=== PATIENT | female | born 2000 | race Caucasian/White ===

== ENCOUNTER 2020-10-23 21:45 | Inpatient (IN) ==
[2020-10-23 22:40] LABS: Appearance Urine Clear (Clear); Bacteria Urine Automated Negative (Negative); Bilirubin Urine Negative (Negative); Blood Urine Negative (Negative); Color Urine Yellow; Epithelial Cell Urine Auto >30 /lpf (0-5); Glucose Urine UA Negative (Negative); Ketones Urine Negative (Negative); Leukocyte Esterase Urine Negative (Negative); Nitrite Urine Negative (Negative); Protein Urine Trace (Negative); RBC Urine Automated 0-4 /hpf (0-4); Specific Gravity Urine 1.025 (1.000-1.030); Urobilinogen Urine Negative (Negative); pH Urine 6.5 (4.5-7.5)
[2020-10-23 22:55] LABS: Pregnancy Test, Urine Negative (Negative)
[2020-10-23 22:56] LABS: Basophils # (auto) 0.02 K/uL (0-0.2); Basophils % (auto) 0.2 %; Eosinophils # (auto) 0.12 K/uL (0-0.5); Eosinophils % (auto) 1.3 %; Hematocrit (blood only) 35.9 % (37-47); Hemoglobin 11.8 g/dL (12.0-16.0); Immature Granulocytes # (auto) 0.03 K/uL (0.00-0.02); Immature Granulocytes % (auto) 0.3 %; Lymphocytes # (auto) 2.59 K/uL (1.2-3.4); Mean Corpuscular Hemoglobin 30.3 pg (25-34); Mean Corpuscular Hgb Conc 32.9 g/dL (32-36); Mean Corpuscular Volume 92.1 fL (80-100); Mean Platelet Volume 9.7 fL (7.4-10.4); Monocytes # (auto) 0.75 K/uL (0.11-0.59); Monocytes % (auto) 8.4 %; Neutrophils # (auto) 5.42 K/uL (1.4-6.5); Neutrophils % (auto) 60.8 %; Platelet Count 209 K/uL (130-400); RDW Coefficient of Variation 12.4 % (11.5-14.5); RDW Standard Deviation 42.2 fL (36.4-46.3); White Blood Count 8.93 K/uL (4.8-10.8)
[2020-10-23 22:56] LABS: Amphetamines+Metham, Urine Neg (Neg); Barbiturates, Urine Neg (Neg); Benzodiazepine, Urine Neg (Neg); Cocaine, Urine Neg (Neg); MDMA (Ecstacy), Urine Neg (Neg); Methadone, Urine Neg (Neg); Opiate, Urine Neg (Neg); Phencyclidine, Urine Neg (Neg)
--- NOTE | 2020-10-23 23:02 | Emergency Department Note ---
Impression & Plan Depression with suicidal ideation ED Provider Note Name: JEFFREY CALZADA Age: 20 Sex: F Arrives Via: Walk-In Informant: Patient, Mother ED Provider: Danial Marcus MD Chief Complaint: Mental Health Evaluation Impression: Depression with Suicidal Ideation Medical Decision Makin yr old female with history depression and previous hospitalization several y ears ago arrives for evaluation of worsening suicidal ideation. Depressed with somewhat flat affect and admits suicidal ideation with plan to point where she was collecting medications the last few days to overdose on. No evidence of harm at this time and she is medically clear. She actively wishes to be admitted for psychiatric management. Voluntary admission to [address] [place] [address]. Triage/Nursing Notes reviewed by Me Differentials:Mood disorder, infection, hypoglycemia, electrolyte abnormalities, cardiac sources, intracerebral event, toxicologic, trauma, neuro logic, as well as other pathologies. Vital Signs: reviewed and remarkable for no significant abnormalities Labs:Reviewed and remarkable for no significant abnormalities Consults:[address] [place] [address] Accepts for admission Plan: Disposition:Hospitalization. Condition: Good History of Present Illness:20 yr old female arrives for evaluation of depression. Patient with worsening depression over the last few weeks. Admits increasing thoughts of killing self. She quit her job a few days ago and started planning to kill herself. She stopped her medications earlier this week and saved them in a bag to take all at once. She was about to take the medications this evening while intoxicated but decided to call her councillor first. Her Councillor advised she go to ED. She contacted her mother who brought her to ED for further evaluation. Patient denies attempt to harm self. No other recent attempts to harm self. She has history of cutting but has not done so in several months. She had several shots of Vodka earlier in the evening. Denies medical complaints other than periodic abdominal cramping after making herself vomit, no current abdominal pain. Nothing makes depression better, stress makes it worse. Previous hospitalizations at [facility] several years ago for depression. Has taken no medications today. Patient admits history of bulimia for which she is planning to check in to [facility] in several weeks for management. ROS: See above HPI for pertinent positives & negatives. A total of 10 systems reviewed and were otherwise negative. Past Medical History:Depression, bulimia Past Surgical History:Tonsils Family History:Mother - Hypothyroid Social History:Recently quit working at [employer], Occasional E ARLINE/Marijuana, No tobacco use, no other drug use Home Medications:Quit recently Allergies:NKDA Vitals:Blood Pressure: 116/71, Pulse 80, RR 20, T 36.7C, O2 98% on RA Physical Exam: GENERAL: Patient is sad appearing and in minimal distress. EYES: No scleral icterus, unremarkable pupils. ENT: Mucous membranes moist, no nasal congestion. NECK: No masses appreciated, nomeningismus, trachea is midline. RESPIRATORY: No dyspnea. Clear to auscultation and equal bilaterally. No wheeze, no rhonchi. CARDIOVASCULAR: Regular rate and rhythm.No murmurs, rubs, gallops appreciated. GASTROINTESTINAL: Abdomen soft, non-tender, no peritonitis.Bowel sounds positive.No masses appreciated. BACK: No midline tenderness, no CVA tenderness EXTREMITIES: Normal motion all extremities, no cyanosis, no edema. NEUROLOGIC: Alert and oriented, no acute motor or sensory deficits, no focal weakness, cranial nerves grossly intact. SKIN: No rash, no jaundice, no diaphoresis. old forearm scars from cutting. Writing on left hand. PSYCH: Depressed, flat, admits suicidal ideation with plan GCS: 15 ED Course: Times/Reassessments: Stable and agreeable to hospitalization Danial Marcus MD Past Med/Surg History Social History Smoking Status: Never smoker Preferred Language: Y[place] Beliefs That Will Affect Care: None Feels Safe at Home: Yes Assistive Devices: Contacts and Glasses Allergies Allergies Allergy/AdvReac Type Severity Reaction Status Date / Time No Known Allergies Allergy Unverified 10/24/20 02:36 Home Meds Home Medications Medication Instructions Recorded Confirmed bupropion HCl 300 mg PO DAILY 10/24/20 10/24/20 dexmethylphenidate 20 mg PO DAILY 10/24/20 10/24/20 doxycycline hyclate 100 mg PO DAILY 10/24/20 10/24/20 prazosin 2 mg PO HS 10/24/20 10/24/20 prochlorperazine maleate 5 mg PO DAILY 10/24/20 10/24/20 sucralfate 10 ml PO USEASDIRECTD 10/24/20 10/24/20 vortioxetine [Trintellix] 20 mg PO DAILY 10/24/20 10/24/20 Results & Data (ED) Vital Signs Vital Signs - 24 hr 10/23/20 21:47 10/23/20 23:00 Temperature 36.7 C Temperature Source Temporal Artery Scan Pulse Rate 145 H Pulse Rate [Right Radial] 94 H Pulse Rhythm Regular Pulse Rhythm [Right Radial] Regular Pulse Strength [Right Radial] Normal Respiratory Rate 20 Respiratory Effort / Characteristics Non-Labored Spontaneous Respiratory Depth Normal Respiratory Pattern Regular Blood Pressure 116/71 Blood Pressure Mean 86 Pulse Oximetry 98 Oxygen Delivery Method Room Air Sepsis Recent Fever Within 48 Hours No Sepsis New/Unexplained Change in Mental Status No Sepsis Action Taken by Nursing No Action Required Laboratory Data Result diagrams: 10/23/20 22:43 10/23/20 22:43 Lab Results 10/23/20 10/23/20 10/23/20 Range/Units 22:00 22:00 22:00 WBC (4.8-10.8) K/uL RBC (4.2-5.4) M/uL Hgb (12.0-16.0) g/dL Hct (37-47) % MCV (80-100) fL MCH (25-34) pg MCHC (32-36) g/dL RDW Std Deviation (36.4-46.3) fL RDW Coeff of Kev (11.5-14.5) % Plt Count (130-400) K/uL MPV (7.4-10.4) fL Immature Gran % (Auto) % Neut % (Auto) % Lymph % (Auto) % [place] % (Auto) % Eos % (Auto) % Baso % (Auto) % Neut # (Auto) (1.4-6.5) K/uL Lymph # (Auto) (1.2-3.4) K/uL [place] # (Auto) (0.11-0.59) K/uL Eos # (Auto) (0-0.5) K/uL Baso # (Auto) (0-0.2) K/uL Immature Gran # (Auto) (0.00-0.02) K/uL Sodium (136-145) mmol/L Potassium (3.5-5.1) mmol/L Chloride (98-107) mmol/L Carbon Dioxide (21-32) mmol/L Anion Gap (3-11) BUN (7-18) mg/dl Creatinine (0.6-1.2) mg/dl Est Cr Clr Drug Dosing ml/min Est GFR ( Amer) ml/min Est GFR (Non-Af Amer) ml/min BUN/Creatinine Ratio (10-20) Glucose (70-99) mg/dl Calcium (8.5-10.1) mg/dl Total Bilirubin (0.2-1) mg/dl AST (15-37) U/L ALT (12-78) U/L Alkaline Phosphatase (45-117) U/L Total Protein (6.4-8.2) gm/dl Albumin (3.4-5.0) gm/dl Globulin (2.5-4.0) gm/dl Albumin/Globulin Ratio (0.9-2) TSH (0.300-4.500) uIu/ml Urine Color Yellow Urine Appearance Clear (Clear) Urine pH 6.5 (4.5-7.5) Ur Specific [place] 1.025 (1.000-1.030) Urine Protein Trace H (Negative) Urine Glucose (UA) Negative (Negative) Urine Ketones Negative (Negative) Urine Blood Negative (Negative) Urine Nitrite Negative (Negative) Urine Bilirubin Negative (Negative) Urine Urobilinogen Negative (Negative) Ur Leukocyte Esterase Negative (Negative) Urine WBC (Auto) 1-5 (0-5) /hpf Urine RBC (Auto) 0-4 (0-4) /hpf U Hyaline Cast (Auto) 1-5 (0-5) /lpf U Epithel Cells (Auto) >30 H (0-5) /lpf Urine Bacteria (Auto) Negative (Negative) Urine Test Negative (Negative) Salicylates (2.8-20) mg/dl Urine Opiates Screen Neg (Neg) Ur Methadone, Qual Neg (Neg) Acetaminophen (10-30) ug/ml Urine Barbiturates Neg (Neg) Ur Phencyclidine (PCP) Neg (Neg) U Amphetamin/Meth Scrn Neg (Neg) MDMA (Ecstasy) Screen Neg (Neg) U Benzodiazepines Scrn Neg (Neg) Ur Cocaine Metabolite Neg (Neg) U Marijuana (THC) Screen Pos H (Neg) Ethyl Alcohol mg/dL (0-3) mg/dl COVID-19 Eval Order SARS-CoV-2 (PCR) (Negative) 10/23/20 10/23/20 10/23/20 Range/Units 22:43 22:43 22:43 WBC 8.93 (4.8-10.8) K/uL RBC 3.90 L (4.2-5.4) M/uL Hgb 11.8 L (12.0-16.0) g/dL Hct 35.9 L (37-47) % MCV 92.1 (80-100) fL MCH 30.3 (25-34) pg MCHC 32.9 (32-36) g/dL RDW Std Deviation 42.2 (36.4-46.3) fL RDW Coeff of Kev 12.4 (11.5-14.5) % Plt Count 209 (130-400) K/uL MPV 9.7 (7.4-10.4) fL Immature Gran % (Auto) 0.3 % Neut % (Auto) 60.8 % Lymph % (Auto) 29.0 % [place] % (Auto) 8.4 % Eos % (Auto) 1.3 % Baso % (Auto) 0.2 % Neut # (Auto) 5.42 (1.4-6.5) K/uL Lymph # (Auto) 2.59 (1.2-3.4) K/uL [place] # (Auto) 0.75 H (0.11-0.59) K/uL Eos # (Auto) 0.12 (0-0.5) K/uL Baso # (Auto) 0.02 (0-0.2) K/uL Immature Gran # (Auto) 0.03 H (0.00-0.02) K/uL Sodium 146 H (136-145) mmol/L Potassium 3.7 (3.5-5.1) mmol/L Chloride 112 H (98-107) mmol/L Carbon Dioxide 30 (21-32) mmol/L Anion Gap 4.0 (3-11) BUN 17 (7-18) mg/dl Creatinine 0.75 (0.6-1.2) mg/dl Est Cr Clr Drug Dosing 112.0 ml/min Est GFR ( Amer) 133.0 ml/min Est GFR (Non-Af Amer) 114.7 ml/min BUN/Creatinine Ratio 23.1 H (10-20) Glucose 91 (70-99) mg/dl Calcium 8.3 L (8.5-10.1) mg/dl Total Bilirubin 0.1 L (0.2-1) mg/dl AST 15 (15-37) U/L ALT 19 (12-78) U/L Alkaline Phosphatase 60 (45-117) U/L Total Protein 6.1 L (6.4-8.2) gm/dl Albumin 3.2 L (3.4-5.0) gm/dl Globulin 2.9 (2.5-4.0) gm/dl Albumin/Globulin Ratio 1.1 (0.9-2) TSH 1.510 (0.300-4.500) uIu/ml Urine Color Urine Appearance (Clear) Urine pH (4.5-7.5) Ur Specific [place] (1.000-1.030) Urine Protein (Negative) Urine Glucose (UA) (Negative) Urine Ketones (Negative) Urine Blood (Negative) Urine Nitrite (Negative) Urine Bilirubin (Negative) Urine Urobilinogen (Negative) Ur Leukocyte Esterase (Negative) Urine WBC (Auto) (0-5) /hpf Urine RBC (Auto) (0-4) /hpf U Hyaline Cast (Auto) (0-5) /lpf U Epithel Cells (Auto) (0-5) /lpf Urine Bacteria (Auto) (Negative) Urine Test (Negative) Salicylates < 1.7 L (2.8-20) mg/dl Urine Opiates Screen (Neg) Ur Methadone, Qual (Neg) Acetaminophen < 2 L (10-30) ug/ml Urine Barbiturates (Neg) Ur Phencyclidine (PCP) (Neg) U Amphetamin/Meth Scrn (Neg) MDMA (Ecstasy) Screen (Neg) U Benzodiazepines Scrn (Neg) Ur Cocaine Metabolite (Neg) U Marijuana (THC) Screen (Neg) Ethyl Alcohol mg/dL (0-3) mg/dl COVID-19 Eval Order SARS-CoV-2 (PCR) (Negative) 10/23/20 10/23/20 10/23/20 Range/Units 22:43 23:00 23:00 WBC (4.8-10.8) K/uL RBC (4.2-5.4) M/uL Hgb (12.0-16.0) g/dL Hct (37-47) % MCV (80-100) fL MCH (25-34) pg MCHC (32-36) g/dL RDW Std Deviation (36.4-46.3) fL RDW Coeff of Kev (11.5-14.5) % Plt Count (130-400) K/uL MPV (7.4-10.4) fL Immature Gran % (Auto) % Neut % (Auto) % Lymph % (Auto) % [place] % (Auto) % Eos % (Auto) % Baso % (Auto) % Neut # (Auto) (1.4-6.5) K/uL Lymph # (Auto) (1.2-3.4) K/uL [place] # (Auto) (0.11-0.59) K/uL Eos # (Auto) (0-0.5) K/uL Baso # (Auto) (0-0.2) K/uL Immature Gran # (Auto) (0.00-0.02) K/uL Sodium (136-145) mmol/L Potassium (3.5-5.1) mmol/L Chloride (98-107) mmol/L Carbon Dioxide (21-32) mmol/L Anion Gap (3-11) BUN (7-18) mg/dl Creatinine (0.6-1.2) mg/dl Est Cr Clr Drug Dosing ml/min Est GFR ( Amer) ml/min Est GFR (Non-Af Amer) ml/min BUN/Creatinine Ratio (10-20) Glucose (70-99) mg/dl Calcium (8.5-10.1) mg/dl Total Bilirubin (0.2-1) mg/dl AST (15-37) U/L ALT (12-78) U/L Alkaline Phosphatase (45-117) U/L Total Protein (6.4-8.2) gm/dl Albumin (3.4-5.0) gm/dl Globulin (2.5-4.0) gm/dl Albumin/Globulin Ratio (0.9-2) TSH (0.300-4.500) uIu/ml Urine Color Urine Appearance (Clear) Urine pH (4.5-7.5) Ur Specific [place] (1.000-1.030) Urine Protein (Negative) Urine Glucose (UA) (Negative) Urine Ketones (Negative) Urine Blood (Negative) Urine Nitrite (Negative) Urine Bilirubin (Negative) Urine Urobilinogen (Negative) Ur Leukocyte Esterase (Negative) Urine WBC (Auto) (0-5) /hpf Urine RBC (Auto) (0-4) /hpf U Hyaline Cast (Auto) (0-5) /lpf U Epithel Cells (Auto) (0-5) /lpf Urine Bacteria (Auto) (Negative) Urine Test (Negative) Salicylates (2.8-20) mg/dl Urine Opiates Screen (Neg) Ur Methadone, Qual (Neg) Acetaminophen (10-30) ug/ml Urine Barbiturates (Neg) Ur Phencyclidine (PCP) (Neg) U Amphetamin/Meth Scrn (Neg) MDMA (Ecstasy) Screen (Neg) U Benzodiazepines Scrn (Neg) Ur Cocaine Metabolite (Neg) U Marijuana (THC) Screen (Neg) Ethyl Alcohol mg/dL < 3.0 (0-3) mg/dl COVID-19 Eval Order Covid19 at [facility] SARS-CoV-2 (PCR) NEGATIVE (Negative) Administered Medications Miscellaneous (Focalin~Order Awaiting Action) 1 ea N/A QS SHANNON Stop: 11/23/20 04:59 Last Admin: 10/24/20 06:09 Dose: Not Given Documented by: [id number] Miscellaneous (Trintellix~Order Awaiting Action) 1 ea N/A QS SHANNON Stop: 11/23/20 04:59 Last Admin: 10/24/20 06:10 Dose: Not Given Documented by: [id number] Discharge Plan Visit Data Chief Complaint: Mental Health Evaluation Stated Complaint: MENTAL HEALTH EVALUATION ED Provider: Danial Marcus Discharge Problem: Depression with suicidal ideation Patient Disposition: Admitted As Inpatient Discharge Instructions Interventions: ED Discharge Assessment Last Done: 10/24/20 02:50
[2020-10-23 23:12] LABS: Albumin Level 3.2 gm/dl (3.4-5.0); BUN Creatinine Ratio 23.1 (10-20); Calcium 8.3 mg/dl (8.5-10.1); Est GFR (Non-African American) 114.7 ml/min; Potassium 3.7 mmol/L (3.5-5.1)
[2020-10-23 23:23] LABS: Acetaminophen < 2 ug/ml (10-30); Albumin Globulin Ratio 1.1 (0.9-2); Bilirubin,Total 0.1 mg/dl (0.2-1); Globulin 2.9 gm/dl (2.5-4.0); Salicylate < 1.7 mg/dl (2.8-20); Thyroid Stimulating Hormone 1.51 uIu/ml (0.300-4.500); Total Protein 6.1 gm/dl (6.4-8.2)
[2020-10-24] MEDS ORDERED: ALUMINUM/MAGNESIUM SUSP 30 ML UDC PO PRN (02:27)
[2020-10-24] MEDS ORDERED: SODIUM CHLORIDE 0.65% NA SOLN 45 ML (OCEAN) PRN (02:27)
[2020-10-24] MEDS ORDERED: hydrOXYzine HCl 25 MG TAB PO PRN ×2 (02:27)
[2020-10-24] MEDS ORDERED: MAGNESIUM HYDROXIDE SUSP 30 ML UDC PO PRN (02:27)
[2020-10-24] MEDS ORDERED: BISMUTH SUBSALICYLATE LIQD 236 ML PO PRN (02:27)
[2020-10-24] MEDS ORDERED: ACETAMINOPHEN 325 MG TAB PO PRN (02:27)
[2020-10-24] MEDS: [UNRECOGNIZED DRUG - OTHER] SCH ×3 (06:09→21:11)
[2020-10-24] MEDS: TRINTELLIX~ORDER AWAITING ACTION SCH ×3 (06:10→21:11)
[2020-10-24] MEDS ORDERED: buPROPion HCl 100 MG TABLET PO SCH (09:00)
[2020-10-24] MEDS: buPROPion XL 300 MG TABCR PO SCH (10:27)
[2020-10-24] MEDS: SUCRALFATE 1 GM/10 ML UDC PO SCH ×2 (12:24→17:02)
[2020-10-24] MEDS ORDERED: DOXYCYCLINE HYCLATE 100 MG CAP PO SCH (12:30)
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
[2020-10-24] MEDS: DOXYCYCLINE HYCLATE 100 MG CAP PO SCH (21:14)
[2020-10-24] MEDS: PRAZOSIN HCL 1 MG CAP PO SCH (21:14)
[2020-10-25] MEDS: TRINTELLIX~ORDER AWAITING ACTION SCH ×2 (06:55→08:05)
[2020-10-25] MEDS: [UNRECOGNIZED DRUG - OTHER] SCH ×2 (06:55→08:04)
[2020-10-25] MEDS: DOXYCYCLINE HYCLATE 100 MG CAP PO SCH ×2 (08:51→20:45)
[2020-10-25] MEDS: buPROPion XL 300 MG TABCR PO SCH (08:51)
[2020-10-25] MEDS: SUCRALFATE 1 GM/10 ML UDC PO SCH ×2 (12:30→17:01)
--- NOTE | 2020-10-25 14:39 | Psychiatric Progress Note ---
Date of Service October 25, 2020 Impression / Recommendations Impression This is a 20-year-old female who presented with suicidal ideation. Initially a diagnosis of MDD was described as patient had been reporting longstanding low mood combined with suicidal ideation. However after interview and reviewing records, is more likely that patient has a personality disorder as her description of symptoms does not match what she had said to her outpatient provider just less than a week ago. Furthermore patient continues to bring up problems and symptoms but then refused to speak about them. She challenged race and sports book writer multiple times during the conversation at one point saying "it does not matter what you prescribe me, as soon as I leave I am going to take whatever medication I want to." Patient was asked to reconcile this statement with her voluntary presentation which she was unable to do and became further frustrated with race and sports book writer. Patient did not tolerate the conversation well about her how her substance use is negatively affecting her mental health. (1) Polysubstance abuse: 10/25/2020atient offered rehab following hospitalization to which she declined. The patient's use history suggests problematic substance use. Brief intervent ion was offered and accepted. Intervention was greater than 5 min in length and included assessing readiness to quit, advice on how to reduce or abstain, and to set a specific goal for this hospitalization. corrections caseworker will also assist in anticipating barriers to sobriety and in problem-solving for solutions to those problems while arranging for referral to appropriate treatment. The patient is in precontemplation stage with regards to transtheoretical model of change. The patient is advised to decrease consumption due to depressant effects and risk of interaction with prescription medications. The patient agreed to consider limiting her use and will be provided with recovery materials to continue to educate self on how to cope with their condition without abusing substances. (2) Substance induced mood disorder: Inventory Assets Strengths: Youth Needs: Insight Risk Factors Assessment Male: No : Yes Protective Factors Assessment Employed: No Interval History Chief Complaint "I'm okay". Review of Systems Sleep Information Total Hours of Sleep: 8.75 Sleep Comments: pt on q-15 minute checks Meal Information Percent Meal Consumed - Breakfast: 90 Percent Meal Consumed - Lunch: 80 Percent Meal Consumed - Dinner: 100 Nutrition Comment: patient asleep, meal refrigerated for later Subjective Subjective Patient was seen & assessed and interval progress reviewed with treatment team nursing and social work. Patient reports some improvement in mood. She denies any withdrawal symptoms. She states that she was able to sleep well last night as well as eat well. No adverse effects of the medication reported or observed. Patient is mostly isolative but does appear to be in good behavioral control. Was seen working out today by running laps, showing good energy levels as well as ability to interact with peers. I spent 30 minutes with the patient, 50% of which was dedicated to counselling and coordination of care. Physical Exam Psychiatric Orientation: alert and oriented x 3 Apperance: + disheveled Eye Contact: + fair eye contact Motor Behavior: no abnormal motor movements Speech: normal rate/rhythm/volume of speech Affect: + depressed affect, + tearful affect and + irritable affect Mood: + anxious mood, + irritable mood, + dysphoric mood and + angry mood Thought Process: goal directed thought process Thought Content: reality based without delusions Suicidal Thoughts: + reports suicidal thoughts Homicidal Thoughts: denies homicidal thoughts Hallucinations: no auditory hallucinations and no visual hallucinations Cognition: remote memory grossly intact Estimated Intelligence: consistent with education level Insight: + poor insight Judgement: + poor judgement Vital Signs (Past 24 Hours) Last Vital Signs Temp 36.7 C 10/25/20 06:54 Pulse 69 10/25/20 06:55 Resp 16 10/25/20 06:54 BP 86/52 L 10/25/20 06:55 Pulse Ox 98 10/23/20 21:47 Results & Data ([facility]) Current Inpatient Medications Current Inpatient Medications: Current Inpatient Medications Acetaminophen (Acetaminophen 325 Mg Tab) 650 mg PO Q4H PRN PRN Reason: Headache or Minor Fever Stop: 11/23/20 02:26 Al Hydrox/Mg Hydrox/Simethicone (Aluminum/Magnesium Susp 30 Ml Udc) 30 ml PO Q4H PRN PRN Reason: GI Upset Stop: 11/23/20 02:26 Bismuth Subsalicylate (Bismuth Subsalicylate Liqd 236 Ml) 15 ml PO PRN PRN PRN Reason: Loose Stool Stop: 11/23/20 02:26 Bupropion HCl (Bupropion Xl 300 Mg Tabcr) 300 mg PO QAM SHANNON Stop: 11/23/20 08:59 Last Admin: 10/25/20 08:51 Dose: 300 mg Documented by: Doxycycline Hyclate (Doxycycline Hyclate 100 Mg Cap) 100 mg PO BID SHANNON Stop: 11/23/20 20:59 Last Admin: 10/25/20 08:51 Dose: 100 mg Documented by: Hydroxyzine HCl (Hydroxyzine Hcl 25 Mg Tab) 50 mg PO HSZ PRN PRN Reason: Insomnia Stop: 11/23/20 02:26 Hydroxyzine HCl (Hydroxyzine Hcl 25 Mg Tab) 25 mg PO Q4H PRN PRN Reason: Anxiety Stop: 11/23/20 02:26 Magnesium Hydroxide (Magnesium Hydroxide Susp 30 Ml Udc) 30 ml PO DAILY PRN PRN Reason: Constipation Stop: 11/23/20 02:26 Prazosin HCl (Prazosin Hcl 1 Mg Cap) 2 mg PO HS [facility]ON Stop: 11/23/20 21:59 Last Admin: 10/24/20 21:14 Dose: 2 mg Documented by: Sodium Chloride (Sodium Chloride 0.65% Na Soln 45 Ml ([place])) 1 - 2 sprays NA PRN PRN PRN Reason: Nasal Dryness/Congestion Stop: 11/23/20 02:26 Sucralfate (Sucralfate 1 Gm/10 Ml Udc) 1 gm PO 1200,1715 [facility] Stop: 11/23/20 11:59 Last Admin: 10/25/20 12:30 Dose: 1 gm Documented by: Mental Health & Subst Abuse Tx Psychiatrist Name of Psychiatrist: Anna Singh Psychiatrist's Psychiatric Appointment Comment: [id number] [facility] Therapist Name of Therapist: FAUZIA Koch Therapist's Date of Therapist Appointment: 10/30/20 Time of Therapist Appointment: 6:30 p.m. Therapy Appointment Comment: [address] [facility], [facility] [address], [place] Home Service Technician Name of Home Service Technician: . Post Discharge Appointments Primary Care Physician Name Of Family Doctor: Dr. Espinal Primary Care Provider Appointment Comment: [address] [place] [address] [place] [id number] Contact Information Discharge Discharge Address: [address] [place] [id number]
[2020-10-25] MEDS: PRAZOSIN HCL 1 MG CAP PO SCH (20:45)
[2020-10-26 08:11] LABS: Marijuana Quant, GCMS Urine 1640 ng/mL (<5)
[2020-10-26] MEDS: buPROPion XL 300 MG TABCR PO SCH (09:05)
[2020-10-26] MEDS: DOXYCYCLINE HYCLATE 100 MG CAP PO SCH ×2 (09:05→20:33)
[2020-10-26] MEDS: SUCRALFATE 1 GM/10 ML UDC PO SCH ×2 (12:25→17:01)
--- NOTE | 2020-10-26 15:27 | Psychiatric Progress Note ---
Date of Service October 26, 2020 Impression / Recommendations Impression This is a 20-year-old female who presented with suicidal ideation. Initially a diagnosis of MDD was described as patient had been reporting longstanding low mood combined with suicidal ideation. However after interview and reviewing records, is more likely that patient has a personality disorder as her description of symptoms does not match what she had said to her outpatient provider just less than a week ago. Furthermore patient continues to bring up problems and symptoms but then refused to speak about them. She challenged abstract writer multiple times during the conversation at one point saying "it does not matter what you prescribe me, as soon as I leave I am going to take whatever medication I want to." Patient was asked to reconcile this statement with her voluntary presentation which she was unable to do and became further frustrated with abstract writer. Patient did not tolerate the conversation well about her how her substance use is negatively affecting her mental health. (1) Polysubstance abuse: 10/25/2020atient offered rehab following hospitalization to which she declined. The patient's use history suggests problematic substance use. Brief interventi on was offered and accepted. Intervention was greater than 5 min in length and included assessing readiness to quit, advice on how to reduce or abstain, and to set a specific goal for this hospitalization. parks worker will also assist in anticipating barriers to sobriety and in problem-solving for solutions to those problems while arranging for referral to appropriate treatment. The patient is in precontemplation stage with regards to transtheoretical model of change. The patient is advised to decrease consumption due to depressant effects and risk of interaction with prescription medications. The patient agreed to consider limiting her use and will be provided with recovery materials to continue to educate self on how to cope with their condition without abusing substances. (2) Substance induced mood disorder: Inventory Assets Strengths: Youth Needs: Insight Risk Factors Assessment Male: No : Yes Protective Factors Assessment Employed: No Interval History Chief Complaint "I am okay". Review of Systems Sleep Information Total Hours of Sleep: 8 Sleep Comments: pt on q-15 minute checks Meal Information Percent Meal Consumed - Breakfast: 100 Percent Meal Consumed - Lunch: 100 Percent Meal Consumed - Dinner: 90 Nutrition Comment: patient asleep, meal refrigerated for later Subjective Subjective Patient was seen & assessed and interval progress reviewed with treatment team nursing and social work Per report, patient has been less isolative than previously. Appears to eat meals well and engage with peers at times. Did attend some groups. She continues to have a poor relationship with abstract writer, usually answering in one- word sentences. Today patient was seen sleeping in her room in the afternoon but denied feeling tired or having any issues. She denied any questions about the medications and she denied any problems with her mood. Patient was informed about the plans for discharge tomorrow to which she is in agreement. I spent 30 minutes with the patient, 50% of which was dedicated to counselling and coordination of care. Physical Exam Psychiatric Orientation: alert and oriented x 3 Apperance: + disheveled Eye Contact: + fair eye contact Motor Behavior: no abnormal motor movements Speech: normal rate/rhythm/volume of speech Affect: + depressed affect, + tearful affect and + irritable affect Mood: + anxious mood, + irritable mood, + dysphoric mood and + angry mood Thought Process: goal directed thought process Thought Content: reality based without delusions Suicidal Thoughts: + reports suicidal thoughts Homicidal Thoughts: denies homicidal thoughts Hallucinations: no auditory hallucinations and no visual hallucinations Cognition: remote memory grossly intact Estimated Intelligence: consistent with education level Insight: + poor insight Judgement: + poor judgement Vital Signs (Past 24 Hours) Last Vital Signs Temp 36.6 C 10/26/20 06:00 Pulse 77 10/26/20 09:07 Resp 16 10/26/20 06:00 BP 87/56 L 10/26/20 09:07 Pulse Ox 98 10/23/20 21:47 Results & Data ([facility]) Laboratory Results Laboratory Results - last 24 hr 10/23/20 22:00 U Marijuana THC Carboxy 1640 H Drug Screen Comment SEE NOTE Current Inpatient Medications Current Inpatient Medications: Current Inpatient Medications Acetaminophen (Acetaminophen 325 Mg Tab) 650 mg PO Q4H PRN PRN Reason: Headache or Minor Fever Stop: 11/23/20 02:26 Al Hydrox/Mg Hydrox/Simethicone (Aluminum/Magnesium Susp 30 Ml Udc) 30 ml PO Q4H PRN PRN Reason: GI Upset Stop: 11/23/20 02:26 Bismuth Subsalicylate (Bismuth Subsalicylate Liqd 236 Ml) 15 ml PO PRN PRN PRN Reason: Loose Stool Stop: 11/23/20 02:26 Bupropion HCl (Bupropion Xl 300 Mg Tabcr) 300 mg PO QAM SHANNON Stop: 11/23/20 08:59 Last Admin: 10/26/20 09:05 Dose: 300 mg Documented by: Doxycycline Hyclate (Doxycycline Hyclate 100 Mg Cap) 100 mg PO BID SHANNON Stop: 11/23/20 20:59 Last Admin: 10/26/20 09:05 Dose: 100 mg Documented by: Hydroxyzine HCl (Hydroxyzine Hcl 25 Mg Tab) 50 mg PO HSZ PRN PRN Reason: Insomnia Stop: 11/23/20 02:26 Hydroxyzine HCl (Hydroxyzine Hcl 25 Mg Tab) 25 mg PO Q4H PRN PRN Reason: Anxiety Stop: 11/23/20 02:26 Magnesium Hydroxide (Magnesium Hydroxide Susp 30 Ml Udc) 30 ml PO DAILY PRN PRN Reason: Constipation Stop: 11/23/20 02:26 Prazosin HCl (Prazosin Hcl 1 Mg Cap) 2 mg PO HS SHANNON Stop: 11/23/20 21:59 Last Admin: 10/25/20 20:45 Dose: 2 mg Documented by: Sodium Chloride (Sodium Chloride 0.65% Na Soln 45 Ml ([place])) 1 - 2 sprays NA PRN PRN PRN Reason: Nasal Dryness/Congestion Stop: 11/23/20 02:26 Sucralfate (Sucralfate 1 Gm/10 Ml Udc) 1 gm PO 1200,1715 SHANNON Stop: 11/23/20 11:59 Last Admin: 10/26/20 12:25 Dose: 1 gm Documented by: Mental Health & Subst Abuse Tx Psychiatrist Name of Psychiatrist: Anna Singh Psychiatrist's Psychiatric Appointment Comment: [id number] [facility] Therapist Name of Therapist: FAUZIA Koch Therapist's Date of Therapist Appointment: 10/30/20 Time of Therapist Appointment: 6:30 p.m. Therapy Appointment Comment: [address] [facility], [address], [place] [employer] Name of Melter Supervisor [employer] Furnace: . Post Discharge Appointments Primary Care Physician Name Of Family Doctor: Dr. Espinal Primary Care Provider Appointment Comment: [address] [place] [address] Lisette Gó[place] [address] Contact Information Discharge Discharge Address: [address] [place] [address]
[2020-10-26] MEDS: PRAZOSIN HCL 1 MG CAP PO SCH (20:33)
[2020-10-27] MEDS: buPROPion XL 300 MG TABCR PO SCH (09:13)
[2020-10-27] MEDS: DOXYCYCLINE HYCLATE 100 MG CAP PO SCH (09:13)
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
== END 2020-10-27 11:14 | disposition home or self-care (01) | DRG 897 ==
LOC: ED 21:45 → 3S 10-24 02:27